=== PATIENT | male | born 1990 | race Caucasian/White ===

== ENCOUNTER 2025-08-05 11:03 | Emergency (ER) | payer OTHER, MEDICAID ==
[~2025-08-05] VITALS: Ht 172.7 cm; Wt 83.0 kg
[2025-08-05 11:12] VITALS: O2SAT 99
[2025-08-05] MEDS: LIDOCAINE 5% PATCH TOP SCH (12:11)
[2025-08-05] MEDS: KETOROLAC 30MG/ML VIAL IM ONE (12:11)
[2025-08-05] MEDS ORDERED: LIDO-53 TP (12:21)
[2025-08-05] MEDS ORDERED: GABA-529 MT (12:21)
[2025-08-05] MEDS ORDERED: IBUP-2028 MT (12:21)
[2025-08-05 12:59] VITALS: BP 110/66; PULSE 71; RESP 15; TEMP 37.1; O2SAT 99
== END 2025-08-05 13:01 | disposition home or self-care (01) ==
LOC: ER 11:03
DX: M25.511 Pain in right shoulder (principal); M79.18 Myalgia, other site; Z79.899 Other long term (current) drug therapy; V89.2XXA Person injured in unspecified motor-vehicle accident, traffic, initial encounter; Y93.89 Activity, other specified; Y92.89 Other specified places as the place of occurrence of the external cause; Y99.8 Other external cause status
CPT/HCPCS: 99283; 96372; J1885